=== PATIENT | female | born 1955 | race Caucasian/White ===

== ENCOUNTER 2018-12-05 10:55 | Inpatient (IN) | payer MEDICAID ==
[~2018-12-05] VITALS: Ht 149.9 cm; Wt 65.0 kg
[2019-02-06] VITALS (10 sets, daily range): BP systolic 98–125; BP diastolic 49–98; PULSE 76–97; TEMP 97.3–98
[2019-02-06] MEDS ORDERED: ABILIFY2 MG PO (07:59)
[2019-02-06] MEDS ORDERED: ALBUTEROL SULFAT3 M3 IH (08:02)
[2019-02-06] MEDS ORDERED: AMITRIPTYLINE H10 M1 PO (08:03)
[2019-02-06] MEDS ORDERED: XANAX .25M0.25 MG/TA PO (08:03)
[2019-02-06] MEDS ORDERED: ABILIFY5 MG PO (08:05)
[2019-02-06] MEDS ORDERED: ASPIRIN 32325 MG/TA1 PO (08:08)
[2019-02-06] MEDS ORDERED: LEXAPRO 10MG10 MG PO (08:11)
[2019-02-06] MEDS ORDERED: IRON18 MG1 PO (08:12)
[2019-02-06] MEDS ORDERED: FOLIC ACID 40400 MCG PO (08:12)
[2019-02-06] MEDS ORDERED: LANTUS100 U/ML SQ (08:13)
[2019-02-06] MEDS ORDERED: LIPITOR 10MG10 MG PO (08:14)
[2019-02-06] MEDS ORDERED: ZESTRIL 5MG5 MG PO (08:14)
[2019-02-06] MEDS ORDERED: MOBIC 7.5MG7.5 MG PO (08:15)
[2019-02-06] MEDS ORDERED: PROAIR HFA0.09 MG/AC IH (08:16)
[2019-02-06] MEDS ORDERED: PROTONIX 40MG T40 MG PO (08:16)
[2019-02-06] MEDS ORDERED: VITAMINC1000TA PO (08:18)
--- NOTE | 2019-02-06 09:08 | NUR ---
Initial visit: Patient thanked Child Day Care Provider for looking in on her and offering comfort and prayer.
--- NOTE | 2019-02-06 14:31 | NUR ---
SW student attempted to see the patient but she is currently in surgery. SW will follow up tomorrow, 02/07.
--- NOTE | 2019-02-06 15:47 | NUR ---
PATIENT TO ROOM 327 PER BED WITH REPORT FROM LETITIA JHAVERI PACU @1500. PT IS A/O X3 LUNGS COARSE, BOWEL SOUNDS PRESENT. VSS, DRESSING TO LEFT KNEE CDI WITH AQUACEL OVER INCISION. IV TO PUMP, DERMATOME TO L2. STRONG PEDAL PULSES BILATERALLY. SCDS TEDS BILATERAL. PT DENIES PAIN. ORIENTED TO ROOM.
[2019-02-06] MEDS ORDERED: GLUCOPHAGE500 MG/TAB PO (16:10)
--- NOTE | 2019-02-06 18:58 | NUR ---
REPORT TO JESSICA JHAVERI.
--- NOTE | 2019-02-06 21:21 | NUR ---
Cryocuff placed on patient's left knee per orders and explained the purpose of the cryocuff to patient, verbalized an understanding.
[2019-02-07] VITALS: BP 95/34; PULSE 88; TEMP 97.4
--- NOTE | 2019-02-07 01:22 | NUR ---
Patient ambulated to the Joint Care Nurse's desk and back to her room. PRN pain medication administered prior to walk. Dressing noted to right knee. Patient assisted back into bed. Cryocuff applied. At 0100 patient called this nurse into her room. She asked if she could go smoke. Patient educated on hospital policy regarding tobacco usage. Currently resting in bed. Call light in reach.
[2019-02-07 02:24] VITALS: BP 109/53
--- NOTE | 2019-02-07 06:15 | NUR ---
Patient resting in bed. Pain reassessed and states its 05/08. This is better from 10 she was rating it before pain medication. Denies any further needs.
--- NOTE | 2019-02-07 06:56 | NUR ---
Report from Prabha JHAVERI and Lauren JHAVERI.
--- NOTE | 2019-02-07 07:02 | NUR ---
Report given to EMILIO Floyd
[2019-02-07 07:34] LABS: HEMATOCRIT 38.5 % (37.0-47.0); HEMOGLOBIN 11.9 g/dl (12.5-16.0)
[2019-02-07 07:59] VITALS: BP 113/52; PULSE 101; TEMP 98.2
--- NOTE | 2019-02-07 08:41 | NUR ---
PATIENT SITTING UP IN BED EATING BREAKFAST. PO PAIN NEDS GIVEN FOR INCREASING PAIN, DRESSING TO LEFT KNEE WITH MIDLINE DRAINAGE NOTED. ROSE ANDERSON APRN ROUNDED ON PT THIS AM SEE COMPUTER FOR ORDERS.
--- NOTE | 2019-02-07 08:49 | NUR ---
Follow-up visit; Patient thanked Field Investigator for looking in on her again today and offering God's blessings.
[2019-02-07 12:05] VITALS: BP 132/64; PULSE 105; TEMP 98.7
--- NOTE | 2019-02-07 15:17 | NUR ---
SW met with patient about discharge planning. Patient lives at home alone in [place]. Patient's PCP is Dr Gordon and she obtains prescriptions from [facility] pharmacy. Patient does not currently use any medical equipment or home health services. Patient does not seem to have a plan for rehab after discharge. PT recommended home health because patient lives alone but patient's insurance does not cover home health PT. Patient reports she has done out patient PT in the past but it is hard for her to find rides to get to those appointments. Patients insurance also doesn't cover SNF. SW inquired if patient would be interested in inpatient rehab if the rehab department thought she would be a good candidate. Patient reports that [facility] would be the best option for her. SW contacted [facility] director and she reports she will see if patient is a good candidate. If patient ends up going home she will need a walker. Chip signed choice form for [facility].
[2019-02-07 16:18] VITALS: BP 131/62; PULSE 109; TEMP 98.9
[2019-02-07] MEDS ORDERED: ASPI325T6 PO (16:31)
[2019-02-07] MEDS ORDERED: NORCO 325 MG-7.1 TAB PO (16:32)
[2019-02-07] MEDS ORDERED: ROXICODONE 55 MG/TAB PO (16:33)
[2019-02-07] MEDS ORDERED: TYLENOL 500MG500 MG PO (16:33)
--- NOTE | 2019-02-07 18:31 | NUR ---
reort to Leida JHAVERI.
[2019-02-07 20:00] VITALS: BP 115/62; PULSE 104; TEMP 98.3
--- NOTE | 2019-02-07 20:00 | NUR ---
REPORT RECEIVED, ASSUMED CARE FOR HAND DRAWER IN. ASSESSMENT COMPLETE. VS STABLE. UP TO BATHROOM WITH STAND BY ASSIST-VOIDED WITHOUT DIFFICULTY. AMBULATED IN BUCK FOR APPROX 100 FEET WITH WALKER. TOLERATED WELL. DRESSING TO LEFT [id number] DRAINAGE PRESENT. SWELLING NOTED TO KNEE. CRYOCUFF REFILLED WITH FRESH ICE WATER AND APPLIED TO KNEE. C/O PAIN-WILL MEDICATE PER DR ORDER. DENIES ANY OTHER QUESTIONS OR CONCERNS. ASSISTED TO BED. CALL LIGHT WITHIN REACH. BED IN LOW POSITION/WHEELS LOCKED. ENCOURAGED TO CALL FOR QUESTIONS OR CONCERNS. VERBALIZES UNDERSTANDING. WILL MONITOR.
[2019-02-08] VITALS: BP 135/67; PULSE 79; TEMP 98.3
[2019-02-08 04:00] VITALS: BP 129/60; PULSE 102; TEMP 98.6
[2019-02-08 06:28] LABS: BASO # 0.1 (0.0-0.2); BASO % 0.4 % (0.0-2.0); EOS # 0.2 (0.0-0.7); EOS % 1.2 % (0-4.0); GRAN # 8.7 (1.4-6.5); GRAN % 70.7 % (42.2-75.2); HEMATOCRIT 38.7 % (37.0-47.0); HEMOGLOBIN 12.5 g/dl (12.5-16.0); LYMPH # 2.4 (1.2-3.4); LYMPH % 19.3 % (20.0-51.0); MEAN CELL VOLUME 87 fl (80.0-100.0); MEAN CORPUSCULAR HEMOGLOBIN 28 pg (27.0-31.0); MEAN CORPUSCULAR HGB CONC 32 g/dl (33.0-37.0); MEAN PLATELET VOLUME 10.6 fl (7.4-10.4); PLATELET COUNT 219 K/mm3 (130-400); RED BLOOD COUNT 4.43 M/mm3 (4.10-5.30); REDCELL DISTRIBUTION WIDTH-CV 12.7 % (11.5-14.5)
[2019-02-08 06:45] LABS: CALCIUM 8.8 mg/dL (8.4-10.2); CREATININE, serum 0.48 (0.52-1.25); POTASSIUM 3.9 mmol/L (3.4-5.0)
[2019-02-08 07:23] VITALS: BP 121/59; PULSE 94; TEMP 97.8
--- NOTE | 2019-02-08 09:32 | NUR ---
ANNA met with patient about discharge. Patient will discharge home today and receive out patient PT at [facility]. Patient reports she will utilize [employer] transportation services to get to her rehab appointments. ANNA also informed patient that [facility] reported they are unable to deliver her walker to the hospital today. ANNA inquired if patient would like her to fax the order to another company. Patient reported SW can fax the order to [facility]. NANA faxed the order and [facility] will deliver the walker later this morning.
[2019-02-08 12:13] VITALS: BP 110/64; PULSE 96; TEMP 97.7
--- NOTE | 2019-02-08 15:40 | NUR ---
PATIENT DISCHARGING HOME VIA WHEELCHAIR TO PERSONAL VEHICLE WITH FAMILY. GAVE DISCHARGE INSTRUCTIONS, PRESCRIPTIONS, AQUACEL AND FOLLOW UP APTS. ANSWERED ALL QUESTIONS/CONCERNS. SENT HOME PERSONAL BELONGINGS. PATIENT DISCHARGED.
== END 2019-02-08 15:40 | disposition home or self-care (01) | DRG 470 ==
LOC: JCC 02-06 06:40
PROVIDERS: Nurse Practitioner Family; ADMIT Orthopaedic Surgery
PROC: 0SRD0J9 Replacement of Left Knee Joint with Synthetic Substitute, Cemented, Open Approach (ICD-10-PCS; principal; 2019-02-06 11:55)
DX: M17.12 Unilateral primary osteoarthritis, left knee (principal); I10 Essential (primary) hypertension; E11.9 Type 2 diabetes mellitus without complications; F32.9 Major depressive disorder, single episode, unspecified; M79.7 Fibromyalgia; F31.9 Bipolar disorder, unspecified; E78.5 Hyperlipidemia, unspecified; J45.20 Mild intermittent asthma, uncomplicated; F17.210 Nicotine dependence, cigarettes, uncomplicated
CPT/HCPCS: 99222; 99231-AI; A4314; A9284; C1776; J0330; J0690; J1100; J1815; J2250; J2405; J2704; J3010; J3370; J7030

== ENCOUNTER → 2019-01-28 | Outpatient (CLI) | payer MEDICAID ==
[2019-01-28 13:05] LABS: HIV 1/2 Antibodies Non-Reactive; HIV-1p24 Antigen Non-Reactive
== END ==
LOC: COL.LAB 10:34
PROVIDERS: Orthopaedic Surgery
DX: Z01.812 Encounter for preprocedural laboratory examination (principal); M17.11 Unilateral primary osteoarthritis, right knee